=== PATIENT | male | born 1960 | race Caucasian/White ===

== ENCOUNTER 2025-11-05 14:52 | Outpatient (AMB) | payer OTHER, SELFPAY ==
--- NOTE | 2025-11-05 15:06 | A.OFFPC_ITS ---
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 ?? Prior PCP:? Dr Pierce in [facility]. Then various other doctors. Last office visit/CPE:? CPE > 1 yr Acute issue(s):? High BP Duputren Contractures Dr Jonatan Yeaegr Weight ?? PMHx:? Duputren Contractures SurgHx:? Hands FHx:? Parents: Longevity 90s. Mom: Sarcoma of bone but did well. SocHx:?Quit cigs in early 30s. EtOH 2-3 dr per week - Or less. No drugs PFSH Medical History (Updated 11/05/25 @ 16:05 by Kalin Hightower) No pertinent past medical history No pertinent family history Surgical History (Updated 11/05/25 @ 15:16 by Mirtha Courtney MA) No pertinent past surgical history Social History (Updated 11/05/25 @ 15:15 by Mirtha Courtney MA) Household Members: Spouse Both parents involved: No Caregiver staying overnight: No Housing: House Are you a primary healthcare liaison to a significant other at home: No Do you presently have visiting nurse or other home services: No 75 years or older and lives alone: No Alcohol intake: current Alcohol intake frequency: a few times a month Patient Tobacco Use Status: Never used Tobacco e-Cigarette/Vaping Use: Never Used Second Hand Smoke Exposure: No service: No Current occupational status: retired Current occupational exposures/hazards: No Cognitive needs: No Hearing needs: No Vision needs: Yes (wear glasses) Questionnaire PHQ-9 Over the last 2 weeks, how often have you been bothered by any of the following problems? 1. Little interest or pleasure in doing things: not at all 2. Feeling down, depressed, or hopeless: not at all 3. Trouble falling or staying asleep, or sleeping too much: not at all 4. Feeling tired or having little energy: not at all 5. Poor appetite or overeating: not at all 6. Feeling bad about yourself - or that you are a failure or have let yourself or your family down: not at all 7. Trouble concentrating on things, such as reading the newspaper or watching television: not at all 8. Moving or speaking so slowly that other people could have noticed. Or the opposite - being so fidgety or restless that you have been moving around a lot more than usual: not at all 9. Thoughts that you would be better off or of hurting yourself in some way: not at all Total score: 0 Depression Screening Interpretation: Negative Depression Screening Done: Yes 57946 - PHQ-9 Billing: Yes Source: Developed by Drs. Jamil Gamez, Sallie Dunne, Isac Manrique and colleagues, with an educational yulia from [employer]. Thrive Questionnaire Date Thrive assessed: 11/05/25 I am a: Patient What is your living situation today?: I have a steady place to live Within the past 12 months, did the food you bought not last and you didn't have the money to get more?: Never true Within the past 12 months, did you worry whether your food would run out before you got money to buy more?: Never true Do you have trouble paying for medicines?: No Do you have trouble getting transportation to medical appointments?: No Do you have trouble paying your heating and electricity bill?: No Do you have trouble taking care of your child, family member or friend?: No Do you have trouble with day-to-day activities such as bathing, preparing meals, shopping, managing finances, etc.?: No Are you currently unemployed and looking for a job?: No Are you interested in more education?: Yes Please select the resources that you would like help with: None Currently or been in a relationship where the following occur: No concerns reported THRIVE Score: 0 AUDIT C Alcohol Use Questionnaire (AUDIT-C) 1. How often do you have a drink containing alcohol?: 2-4 times a month 2. How many drinks containing alcohol do you have on a typical day when you are drinking?: 1 or 2 3. How often do you have six or more drinks on one occasion?: Less than monthly Total Score: 3 ALLYSSA-7 AMB Questionnaire ALLYSSA-7 Date ALLYSSA - 7 assessed: 11/05/25 Feeling nervous, anxious, or on edge: 0 = Not at all Not being able to stop or control worryin = Not at all Worrying too much about different things: 0 = Not at all Trouble relaxin = Not at all Being so restless that it is hard to sit still: 0 = Not at all Becoming easily annoyed or irritable: 0 = Not at all Feeling afraid as if something awful might happen: 0 = Not at all Total ALLYSSA-7 score (0-4 normal; 5-9 mild; 10-14 moderate; 15-21 severe): 0 Source: Developed by Drs. Jamil Gamez, Sallie Dunne, Isac Manrique and colleagues, with an educational yulia from [employer]. ALLYSSA-7 Assessment Billing ALLYSSA-7 Assessment Tool: ALLYSSA-7 Assessment 80837 Review of Systems Const Denies chills, Denies fatigue, Denies fever(s), Denies headache(s) and Denies weakness ENT Denies dizziness and Denies headache(s) Card Denies chest pain, Denies lightheadedness, Denies dyspnea and Denies other (Palpitations) Resp Denies cough, Denies dyspnea, Denies wheezing and Denies other ( shortness of breath) Musc Denies numbness and Denies tingling Neuro Denies dizziness, Denies headache(s), Denies numbness, Denies tingling, Denies paresthesias and Denies weakness Psych Denies anxiety and Denies depression Endo Denies fatigue Aller/Immun Denies wheezing Physical exam (Primary Care) Vital Signs: Last Vital Signs Temp 95.7 F L 11/05/25 15:11 Pulse 86 11/05/25 16:08 Resp 14 11/05/25 16:08 BP 174/99 H 11/05/25 16:08 Pulse Ox 97 11/05/25 15:11 Oxygen Delivery Method Room Air 11/05/25 15:11 BMI result Body Mass Index 33.7 Tobacco/Smoking Status: Tobacco use Status Tobacco use date assessed 11/05/25 11/05/25 15:09 Patient Tobacco Use Status Never used Tobacco 11/05/25 15:15 e-Cigarette/Vaping Use Never Used 11/05/25 15:15 PHQ-9: PHQ-9 Score PHQ-9: Total score 0 11/05/25 16:08 Depression Screening Interpretation: Negative Thrive Assessment: Date of Thrive Assessment Date Thrive assessed 11/05/25 11/05/25 15:09 Currently or been in a relationship where the following occur: No concerns reported Const General: no acute distress and well developed Nutritional Appearance: well nourished Orientation/consciousness: patient oriented x3 HENMT Head: Yes normocephalic and Yes atraumatic Eyes General: appearance normal, both eyes and all related structures Pupils: Equal, round and reactive pupils present EOM: EOMs intact bilaterally Resp Effort & Inspection: normal respiratory effort Auscultation: clear to auscultation bilaterally Cardio Rate: regular rate Rhythm: regular rhythm Heart sounds: S1 normal heart sound present, S2 normal heart sound present, no gallops, no murmurs and no rubs Neuro General: patient oriented x3 and gait normal Cranial nerves: Yes Equal, round and reactive pupils present Psych Affect: normal affect Coding Level of Care Code New Pt Level 3 (13221) Diagnoses Hypertension I10 Dupuytren contracture M72.0 Obesity E66.9 Laboratory exam ordered as part of routine general medical examination Z00.00 Additional Codes ALLYSSA-7 Assessment Billing - ALLYSSA-7 Assessment Tool: ALLYSSA-7 Assessment 94008 ([id number]) PHQ-9 - 50837 - PHQ-9 Billing: Yes ([id number]) Assessment & Plan Assessment & Plan (1) Hypertension: Code(s): I10 - Essential (primary) hypertension Category: Medical Plan: Significantly elevated blood pressure. Patient notes that he has had mildly elevated blood pressures in the past? Start Losartan (2) Dupuytren contracture: Code(s): M72.0 - Palmar fascial fibromatosis [Dupuytren] Category: Medical Plan: Bilateral Dupuytren contractures Mild deformity Patient does not want a referral at this time and will me know if worsening. (3) Obesity: Code(s): E66.9 - Obesity, unspecified Category: Medical Plan: We discussed weight loss through diet and exercise Encouraged healthy diet with active lifestyle and plenty of exercise (4) Laboratory exam ordered as part of routine general medical examination: Code(s): Z00.00 - Encounter for general adult medical examination without abnormal findings Category: Medical Plan: Check labs Orders: Orders Comprehensive [place]. Panel Fast 11/05/25 Z00.00 - Encounter for general adult medical examination without abnormal findings Prostate Specific Antigen Scr 11/05/25 Z12.5 - Encounter for screening for malignant neoplasm of prostate TSH reflex Free T4 11/05/25 Z00.00 - Encounter for general adult medical examination without abnormal findings UA CC w/rflx Micro + Cult 11/05/25 Z00.00 - Encounter for general adult medical examination without abnormal findings Complete Blood Count Auto Diff 11/05/25 Z00.00 - Encounter for general adult medical examination without abnormal findings Lipid Panel 11/05/25 Z00.00 - Encounter for general adult medical examination without abnormal findings Microalbumin, Random (w Creat) 11/05/25 I10 - Essential (primary) hypertension Medications: New losartan 50 mg PO DAILY 90 tabs 3RF 90 days
[2025-11-05 15:11] VITALS: BP 168/78; PULSE 86; RESP 14; TEMP 35.4; O2SAT 97; BMI 33.7
[2025-11-05 16:08] VITALS: BP 174/99; PULSE 86; RESP 14
== END 2025-11-05 16:17 | disposition home or self-care (01) ==
LOC: HO.HMCFM 14:53
PROVIDERS: PCP Family Medicine; Visit Provider Family Medicine
DX: I10 Essential (primary) hypertension (principal); M72.0 Palmar fascial fibromatosis [Dupuytren]; E66.9 Obesity, unspecified; Z00.00 Encounter for general adult medical examination without abnormal findings; Z68.33 Body mass index [BMI] 33.0-33.9, adult

== ENCOUNTER → 2025-11-05 14:52 | Outpatient (BNVA) | payer OTHER, SELFPAY | PROVIDERS: PCP Family Medicine; Visit Provider Family Medicine | DX: Z00.00 Encounter for general adult medical examination without abnormal findings (principal); I10 Essential (primary) hypertension; M72.0 Palmar fascial fibromatosis [Dupuytren]; E66.9 Obesity, unspecified; Z68.33 Body mass index [BMI] 33.0-33.9, adult | CPT/HCPCS: 96127 ==